=== PATIENT | male | born 1980 ===

== ENCOUNTER 2018-05-08 07:26 | Emergency (ER) | payer BC ==
[2018-05-08] MEDS ORDERED: Ondansetron INJ* 2 MG/ML VIAL IV ONE (07:50)
[2018-05-08] MEDS: NS 0.9% 1000 ML* 2,000 ML IV ONE ×2 (08:02→09:23)
--- NOTE | 2018-05-08 08:28 | UC ---
Nausea/Vomiting/Diarrhea HPI - HPI Summary HPI Summary: 38-year-old male comes in to clinic today with chief complaint of nausea vomiting diarrhea and intermittent abdominal pain. Started 2 days ago with nausea vomiting and diarrhea. There is abdominal cramping and then once he vomits and/or has diarrhea than the abdominal pain goes away. No fevers. No focal area of abdominal pain in between episodes of vomiting and diarrhea. The diarrhea is watery. The vomit does not have any blood in it. No prior surgeries. Yesterday he started to feel better and then symptoms returned. Does feel somewhat lightheaded when he stands up. He did vomit this morning. No recent travel or camping. No one else in the house is sick. - History of Current Complaint Chief Complaint: UCGI Stated Complaint: VOMITING, ABD PAIN Time Seen by Provider: 05/08/18 07:27 Pain Intensity: 5 - Allergies/Home Medications Allergies/Adverse Reactions: Allergies Allergy/AdvReac Type Severity Reaction Status Date / Time amoxicillin Allergy Rash Verified 05/08/18 07:38 ibuprofen Allergy Hallucinati Verified 05/08/18 07:38 ons Penicillins Allergy Rash Verified 05/08/18 07:38 Home Medications: Home Medications Naproxen Sodium [Aleve] 660 mg PO ONCE PRN 05/08/18 [History Confirmed 05/08/18] PMH/Surg Hx/FS Hx/Imm Hx Previously Healthy: Yes - Surgical History Surgical History: Yes Surgery Procedure, Year, and Place: right ankle - Family History Known Family History: Positive: Non-Contributory - Social History Alcohol Use: Occasionally Substance Use Type: None Smoking Status (MU): Never Smoked Tobacco Review of Systems All Other Systems Reviewed And Are Negative: Yes Constitutional: Positive: Fever Skin: Positive: Negative Eyes: Positive: Negative ENT: Positive: Other - ORAL MUCOSA SLIGHTLY DRY Respiratory: Positive: Negative Cardiovascular: Positive: Negative Gastrointestinal: Positive: Abdominal Pain, Vomiting, Diarrhea, Nausea Genitourinary: Positive: Negative Motor: Positive: Negative Neurovascular: Positive: Negative Musculoskeletal: Positive: Negative Neurological: Positive: Negative Psychological: Positive: Negative Is Patient Immunocompromised?: No Physical Exam Triage Information Reviewed: Yes Appearance: No Pain Distress, Well-Nourished, Ill-Appearing - MILD Vital Signs: Initial Vital Signs Temp 96.5 F 05/08/18 07:32 Pulse 99 05/08/18 07:32 Resp 18 05/08/18 07:32 BP 107/57 05/08/18 07:32 Pulse Ox 96 05/08/18 07:32 Vital Signs Reviewed: Yes Eye Exam: Normal Eyes: Positive: Conjunctiva Clear ENT: Positive: Pharynx normal - MILDLY DRY. Negative: Nasal drainage Neck exam: Normal Neck: Positive: Supple Respiratory: Positive: Lungs clear, Normal breath sounds, No respiratory distress Cardiovascular Exam: Normal Cardiovascular: Positive: RRR Abdomen Description: Positive: Soft, Other: - MILD TENDERNESS TO PALPATION LOWER ABD. Negative: CVA Tenderness (R), CVA Tenderness (L), Distended, Guarding Musculoskeletal Exam: Normal Musculoskeletal: Positive: Strength Intact, ROM Intact Neurological Exam: Normal Neurological: Positive: Alert, Muscle Tone Normal Psychological Exam: Normal Psychological: Positive: Age Appropriate Behavior Skin Exam: Normal Naus/Vom/Diarrhea Course/Dx - Course Course Of Treatment: Patient's abdominal pain is intermittent. It is crampy in nature. No rebound. No prior surgeries. With patient having both vomiting and diarrhea there is no clinical evidence of obstruction. No fevers. No recent travel. Patient did give a stool sample in clinic. He received 2 L of normal saline and Zofran in clinic and he does feel somewhat improved. Plan is to treat with Zofran and advance diet as tolerated. Further treatment based on the stool results. I let the patient and his know that if he got worse with fevers dehydration focal area of pain the best place for reevaluation and treatment would be the emergency department. - Differential Dx/Diagnosis Provider Diagnoses: DEHYDRATION. NAUSEA, VOMITING, DIARRHEA. ABDOMINAL PAIN Condition At Discharge: Stable Discharge - Sign-Out/Discharge Documenting (check all that apply): Patient Departure All imaging exams completed and their final reports reviewed: No Studies - Discharge Plan Condition: Stable Disposition: HOME Prescriptions: Ondansetron ODT TAB* [Zofran 4 MG Odt TAB*] 4 mg PO Q6H PRN #10 tab.odt PRN Reason: Nausea Patient Education Materials: Dehydration (ED), Acute Nausea and Vomiting (ED), Acute Diarrhea (ED), Acute Abdominal Pain (ED) Referrals: [facility] [place] [facility] [Outside] Additional Instructions: FOLLOW UP WITH YOUR DOCTOR IF NOT COMPLETELY IMPROVED. GO TO THE EMERGENCY DEPARTMENT FOR ANY WORSENING OF YOUR CONDITION OR QUESTIONS OR CONCERNS. - Billing Disposition and Condition Condition: STABLE Disposition: Home
[2018-05-08 10:37] VITALS: BP 110/63
== END 2018-05-08 10:45 | disposition home or self-care (01) ==
LOC: UCEAST 07:26
DX: E86.0 Dehydration (principal); R11.2 Nausea with vomiting, unspecified; R19.7 Diarrhea, unspecified; R10.30 Lower abdominal pain, unspecified; Z88.0 Allergy status to penicillin; Z88.6 Allergy status to analgesic agent
CPT/HCPCS: 82270; 83630; 87045; 87046; 87077; 87328; 87329; 87493; 87899; 96360; 96361; 96374; 99202; G0463; J2405